=== PATIENT | female | born 1990 | race Caucasian/White ===

== ENCOUNTER 2024-08-08 19:53 | Emergency (ER) | payer BC, SELFPAY ==
[2024-08-08 19:54] VITALS: BP 155/79; PULSE 71; RESP 22; TEMP 36.6; O2SAT 98; BMI 23.3
--- NOTE | 2024-08-08 19:55 | ED_ITS ---
<Statement entered by Dianne Vu MD - 08/08/24 23:00> I was consulted by the BRITTANI, and we discussed the complexity of the problems being addressed. I approved the treatment and management plan for this patient's care in the emergency department, thus performing a substantive portion of the medical decision making. Dianne Vu MD, LD, FACEP Discharge Plan Disposition Patient Disposition: Home, Self-Care Condition: Good Chief Complaint: Abdominal Pain Referrals Follow up/Referrals: Provider,MD Lennox [Primary Care Provider] - See instructions Noé Morgan MD [Staff Physician] - See instructions (Right upper quadrant abdominal pain) Activity Restrictions/Add. Instructions Additional Instructions/Restrictions: As we discussed for any new or worsening symptoms including fever pain inability to tolerate oral intake return to the emergency department. Please call in the morning to make your appointment with general surgery for further evaluation of your right upper quadrant abdominal pain. Clinical Impressions Clinical Impression: Right upper quadrant abdominal pain Instructions Patient Instructions: DI for Acute Abdominal Pain Print Language Print Language: Upper Sorbian Discharge ED Provider: Dianne Vu General Adult HPI <MIGUEL Graham - Last Filed: 08/08/24 22:17> General Chief complaint: Abdominal Pain Stated complaint: Abdominal Pain with nausea Time Seen by Provider: 08/08/24 19:55 History of Present Illness HPI narrative: Patient presents for evaluation of acute onset of right sided abdominal pain. relates a history of having a pulled pork sandwich and 30 minutes later patient began having excruciating right-sided abdominal pain. She states that it has been crescendo-decrescendo but has not been absent. She reports nausea but no vomiting or diarrhea hematuria. She has had an appendectomy prior and has a history of previous kidney stones. She denies fever chills chest pain shortness of breath hemoptysis hematochezia melena Related Data Allergies Allergy/AdvReac Type Severity Reaction Status Date / Time Penicillins Allergy Rash Verified 08/08/24 20:05 [facility] <MIGUEL Graham - Last Filed: 08/08/24 22:17> [facility] Disclaimer: The information contained in this section may have been updated after the patient was seen, as this information can be updated by other users. Social History Smoking Status: Never smoker alcohol intake: never current occupational status: employed Travel in the last 8 weeks: None <MIGUEL Graham - Last Filed: 08/08/24 22:17> ROS Obtained: Yes Systems reviewed as appropriate & no additional complaints except as documented Physical Exam <MIGUEL Graham - Last Filed: 08/08/24 22:17> General General appearance: alert and in no apparent distress Respiratory Respiratory exam: Present normal lung sounds bilaterally Cardiovascular Cardiovascular exam: Present regular rate Neurological Exam Neurological exam: Present alert and oriented X3 Medical Decision Making <MIGUEL Graham - Last Filed: 08/08/24 22:17> Medical Records Medical records reviewed: Yes I reviewed the patient's medical records. Screening: Per USPSTF and CDC recommendations, given the prevalence of disease in our region, it is our hospital?s policy to screen for HIV and viral Hepatitis for all patients aged 18 and over and those with ongoing risk factors. Senthil Inquiry Pt receiving controlled substance: No Vital Signs: 08/08/24 19:54 Temperature 98 F Temperature Source Oral Pulse Rate [Right Brachial] 71 Respiratory Rate 22 Blood Pressure [Right Arm] 155/79 H Blood Pressure Mean [Right Arm] 104 02 Sat by Pulse Oximetry 98 Oxygen Delivery Method Room Air Lab Data Lab results reviewed: Yes I reviewed the patient's lab results. Lab Results 08/08/24 20:13: WBC 5.7, RBC 4.32, Hgb 12.7, Hct 36.7 L, MCV 85.0, MCH 29.4, MCHC 34.6, RDW 13.5, Plt Count 235, MPV 8.7, Neut % (Auto) 63.5, Lymph % (Auto) 27.7, Loving % (Auto) 4.6, Eos % (Auto) 2.8, Baso % (Auto) 1.3, Neut # (Auto) 3.6, Lymph # (Auto) 1.6, Loving # (Auto) 0.3, Eos # (Auto) 0.2, Baso # (Auto) 0.1, Sodium 142, Potassium 3.6, Chloride 108 H, Carbon Dioxide 25, Anion Gap 12.6, BUN 10, Creatinine 0.70, Estimated Creat Clear 119, Estimated GFR 96, Est GFR ( Amer) 117, Glucose 138 H, Calcium 9.6, Total Bilirubin 0.4, AST 27, ALT 26, Alkaline Phosphatase 57, Total Protein 7.4, Albumin 4.6, Globulin 2.8, Albumin/Globulin Ratio 1.6, Serum HCG, Qual Negative 08/08/24 20:55: Urine Color Yellow, Urine Appearance Clear, Urine pH 6.5, Ur Specific Gray 1.025, Urine Protein Negative, Urine Glucose (UA) Negative, Urine Ketones Negative, Urine Blood Negative, Urine Nitrate Negative, Urine Bilirubin Negative, Urine Urobilinogen 0.2, Ur Leukocyte Esterase Negative, Urine WBC 3-5, Ur Squamous Epith Cells 5-10, Urine Bacteria 1+, Urine Mucus 1+ 08/08/24 20:13 08/08/24 20:13 Orders (Tests/Meds): ED MEDICATIONS Generic Name Dose Route Start Last Admin Trade Name Freq PRN Reason Stop Dose Admin Sodium Chloride 10 ml 08/08/24 21:07 08/08/24 21:08 Sodium Chloride 0.9% 10ml Syr (Rad Only) IV 09/07/24 21:06 10 ml NEEDED PRN Administration Maintain IV Site Discontinued Medications Generic Name Dose Route Start Last Admin Trade Name Freq PRN Reason Stop Dose Admin Acetaminophen 1,000 mg 08/08/24 20:00 08/08/24 20:19 Acetaminophen 1,000mg/100ml Vial IV 08/08/24 20:01 1,000 mg ONCE ONE Administration Lactated Ringer's 1,000 mls @ 999 mls/hr 08/08/24 20:18 08/08/24 20:19 Lactated Ringer's 1000 Ml Bag IV 08/08/24 21:18 999 mls/hr .Q1H1M ONE Administration Iopamidol 75 ml 08/08/24 21:07 08/08/24 21:07 Iopamidol-370 (76%);100ml Bottle IV 08/08/24 21:08 75 ml ONCE ONE Administration Ketorolac Tromethamine 15 mg 08/08/24 20:00 08/08/24 20:19 Ketorolac 30mg/Ml Vial IV 08/08/24 20:01 15 mg ONCE ONE Administration Morphine Sulfate 2 mg 08/08/24 20:00 08/08/24 20:19 Morphine 2mg/Ml Syringe IV 08/08/24 20:01 2 mg ONCE ONE Administration Ondansetron HCl 4 mg 08/08/24 20:17 08/08/24 20:20 Ondansetron 4mg/2ml Vial IV 08/08/24 20:18 4 mg ONCE ONE Administration ORDERS Category Date Time Status CT abdomen pelvis w con Stat Cat Scan 08/08/24 20:01 Completed POCUS Point of Care (ER Only) Stat Exams 08/08/24 19:59 Completed CBC w/Auto Diff [Complete Blood Count Auto Diff] Stat Lab 08/08/24 20:13 Completed CMP [Comprehensive Metabolic Panel] Stat Lab 08/08/24 20:13 Completed HCG Qualitative, Serum Stat Lab 08/08/24 20:13 Completed UA [Urinalysis and Microscopic] Stat Lab 08/08/24 20:55 Completed Medical Decision Narrative: In summary patient is a 33-year-old female who presents to the emergency department for evaluation of right-sided abdominal pain. Patient is hemodynamically stable upon arrival, afebrile. Zickel exam is remarkable for right sided abdominal tenderness to palpation but no rebound no guarding no rigidity. Bowel sounds are quiescent. Patient does have right-sided CVA tenderness to percussion negative on the left. Differential diagnosis includes biliary colic versus cholecystitis versus kidney stone. Initial workup will be conducted with hematologic labs urinalysis CT scan abdomen pelvis POCUS. Initial interventions include crystalloid bolus Toradol Tylenol Zofran morphine. Initial workup reviewed by me and her hematologic labs are nonactionable urinalysis shows white cells and 1+ bacteria but patient also had 5-10 epithelial cells. She has no urinary tract symptoms. My informal interpretation of her CT scan abdomen pelvis shows a dilated gallbladder with gallstones but no evidence of pericholecystic fluid or stranding or obstruction, no evidence of hydronephrosis or kidney stone, she does have a large stool burden in the cecum but no evidence of perforation or stranding prior to radiology read. Upon repeat evaluation patient had complete resolution of her symptoms after initial intervention. Given this we have essentially ruled out any serious or life-threatening problem although not definitively identify the cause suspect most likely biliary colic given that she presented after a meal and her gallbladder was largely dilated and not contracted as 1 would expect. Given this I will refer the patient to general surgery for further evaluation of biliary dyskinesia and biliary colic with strict return precautions. <Dainne Vu MD - Last Filed: 08/08/24 20:13> Vital Signs: 08/08/24 19:54 Temperature 98 F Temperature Source Oral Pulse Rate [Right Brachial] 71 Respiratory Rate 22 Blood Pressure [Right Arm] 155/79 H Blood Pressure Mean [Right Arm] 104 02 Sat by Pulse Oximetry 98 Oxygen Delivery Method Room Air Lab Data Lab Results 08/08/24 20:13: WBC 5.7, RBC 4.32, Hgb 12.7, Hct 36.7 L, MCV 85.0, MCH 29.4, MCHC 34.6, RDW 13.5, Plt Count 235, MPV 8.7, Neut % (Auto) 63.5, Lymph % (Auto) 27.7, Loving % (Auto) 4.6, Eos % (Auto) 2.8, Baso % (Auto) 1.3, Neut # (Auto) 3.6, Lymph # (Auto) 1.6, Loving # (Auto) 0.3, Eos # (Auto) 0.2, Baso # (Auto) 0.1, Sodium 142, Potassium 3.6, Chloride 108 H, Carbon Dioxide 25, Anion Gap 12.6, BUN 10, Creatinine 0.70, Estimated Creat Clear 119, Estimated GFR 96, Est GFR ( Amer) 117, Glucose 138 H, Calcium 9.6, Total Bilirubin 0.4, AST 27, ALT 26, Alkaline Phosphatase 57, Total Protein 7.4, Albumin 4.6, Globulin 2.8, Albumin/Globulin Ratio 1.6, Serum HCG, Qual Negative 08/08/24 20:55: Urine Color Yellow, Urine Appearance Clear, Urine pH 6.5, Ur Specific Gray 1.025, Urine Protein Negative, Urine Glucose (UA) Negative, Urine Ketones Negative, Urine Blood Negative, Urine Nitrate Negative, Urine Bilirubin Negative, Urine Urobilinogen 0.2, Ur Leukocyte Esterase Negative, Urine WBC 3-5, Ur Squamous Epith Cells 5-10, Urine Bacteria 1+, Urine Mucus 1+ Orders (Tests/Meds): ED MEDICATIONS Generic Name Dose Route Start Last Admin Trade Name Freq PRN Reason Stop Dose Admin Sodium Chloride 10 ml 08/08/24 21:07 08/08/24 21:08 Sodium Chloride 0.9% 10ml Syr (Rad Only) IV 09/07/24 21:06 10 ml NEEDED PRN Administration Maintain IV Site Discontinued Medications Generic Name Dose Route Start Last Admin Trade Name Freq PRN Reason Stop Dose Admin Acetaminophen 1,000 mg 08/08/24 20:00 08/08/24 20:19 Acetaminophen 1,000mg/100ml Vial IV 08/08/24 20:01 1,000 mg ONCE ONE Administration Lactated Ringer's 1,000 mls @ 999 mls/hr 08/08/24 20:18 08/08/24 20:19 Lactated Ringer's 1000 Ml Bag IV 08/08/24 21:18 999 mls/hr .Q1H1M ONE Administration Iopamidol 75 ml 08/08/24 21:07 08/08/24 21:07 Iopamidol-370 (76%);100ml Bottle IV 08/08/24 21:08 75 ml ONCE ONE Administration Ketorolac Tromethamine 15 mg 08/08/24 20:00 08/08/24 20:19 Ketorolac 30mg/Ml Vial IV 08/08/24 20:01 15 mg ONCE ONE Administration Morphine Sulfate 2 mg 08/08/24 20:00 08/08/24 20:19 Morphine 2mg/Ml Syringe IV 08/08/24 20:01 2 mg ONCE ONE Administration Ondansetron HCl 4 mg 08/08/24 20:17 08/08/24 20:20 Ondansetron 4mg/2ml Vial IV 08/08/24 20:18 4 mg ONCE ONE Administration ORDERS Category Date Time Status CT abdomen pelvis w con Stat Cat Scan 08/08/24 20:01 Completed POCUS Point of Care (ER Only) Stat Exams 08/08/24 19:59 Completed CBC w/Auto Diff [Complete Blood Count Auto Diff] Stat Lab 08/08/24 20:13 Completed CMP [Comprehensive Metabolic Panel] Stat Lab 08/08/24 20:13 Completed HCG Qualitative, Serum Stat Lab 08/08/24 20:13 Completed UA [Urinalysis and Microscopic] Stat Lab 08/08/24 20:55 Completed Procedures <Dianne Vu MD - Last Filed: 08/08/24 20:13> Miscellaneous Procedure Procedure Performed: Limited RUQ ultrasound Indication: Abdominal pain Identified structures: -Gallbladder -Gallbladder wall -Common bile duct -Liver Findings: There are multiple stones that are present in the gallbladder but no evidence of acute inflammation there is a negative sonographic Neil's anterior gallbladder wall is less than 0.3 cm common bile duct is visualized and was 0.3 cm as well no pericholecystic fluid Impression: Cholelithiasis without radiographic evidence of cholecystitis or choledocholithiasis Images were saved to permanent archive The study was technically adequate CPT 19204-31 This study was performed by [facility], and I personally interpreted all images/videos. Based on my clinical judgement, these images were adequate and did not necessitate further imaging. Limited renal ultrasound Indication: A focused ultrasound of the kidneys was performed to evaluate for hydronephrosis and nephrolithiasis. The ultrasound was performed with the following indications, as noted in the H&P: Abdominal pain Identified structures: [-R kidney - L kidney - Both kidneys] Findings: There is moderate right-sided hydronephrosis in comparison with left Impression: Moderate right-sided hydronephrosis concerning for possible obstructing kidney stone Images were saved to permanent archive The study was technically adequate CPT: 55941-99 This study was performed by [facility], and I personally interpreted all images/videos. Based on my clinical judgement, these images were adequate and did not necessitate further imaging. Critical Care <MIGUEL Graham - Last Filed: 08/08/24 22:17> Critical Care Time Critical Care Time: No
--- NOTE | 2024-08-08 20:01 | CT_ITS ---
PROCEDURE INFORMATION: Exam: CT Abdomen And Pelvis With Contrast Exam date and time: 08/08/2024 9:06 PM Age: 33 years old Clinical indication: Abdominal pain; Additional info: Upper quadrant abdominal pain TECHNIQUE: Imaging protocol: Computed tomography of the abdomen and pelvis with contrast. Radiation optimization: All CT scans at this facility use at least one of these dose optimization techniques: automated exposure control; mA and/or kV adjustment per patient size (includes targeted exams where dose is matched to clinical indication); or iterative reconstruction. Contrast material: ISOVUE; Contrast volume: 75 ml; Contrast route: IV; COMPARISON: No relevant prior studies available. FINDINGS: Liver: Normal. No mass. Gallbladder and biliary ducts: Dilated gallbladder with gallstones and gallbladder wall thickening. Pancreas: Normal. No ductal dilation. Spleen: Normal. No splenomegaly. Adrenal glands: Normal. No mass. Kidneys and ureters: Low attenuation renal lesions measuring up to 1.5 cm in diameter are incompletely characterized, but are likely cysts. No followup imaging is warranted. Duplex right kidney. Stomach and bowel: Bowel wall thickening of portions of small bowel. Appendix: Appendix is absent. Intraperitoneal space: Trace free fluid in the pelvis, which could be physiologic. Vasculature: Unremarkable. No abdominal aortic aneurysm. Lymph nodes: Unremarkable. No enlarged lymph nodes. Urinary bladder: Nonspecific urinary bladder wall thickening. Reproductive: Intrauterine device is in the expected location. Bones/joints: Unremarkable. No acute fracture. Soft tissues: Tiny fat containing umbilical hernia. IMPRESSION: 1. Dilated gallbladder with gallstones and gallbladder wall thickening. Please correlate for evidence of acute cholecystitis. 2. Bowel wall thickening of portions of small bowel. Enteritis is possible. 3. Nonspecific urinary bladder wall thickening. Please exclude infection. COMMENTS: Consistent with the [employer]'s Incidental Findings Committee white paper (J Am Timothy Radiol 2018): Any incidental renal lesion less than 1 cm or classified as too small to characterize, or any incidental cystic renal lesion characterized as simple-appearing, is likely benign. No follow-up imaging is recommended for these lesions per consensus recommendations based on imaging criteria.
[2024-08-08] MEDS: LACTATED RINGERS 1000ML 1,000 ML 999 ML IV (20:19)
[2024-08-08] MEDS: ACETAMINOPHEN 1,000MG/100ML VIAL 1000 MG IV (20:19)
[2024-08-08] MEDS: KETOROLAC 30MG/ML VIAL 15 MG IV (20:19)
[2024-08-08] MEDS: MORPHINE 2MG/ML SYRINGE 2 MG IV (20:19)
[2024-08-08] MEDS: ONDANSETRON 4MG/2ML VIAL 4 MG IV (20:20)
[2024-08-08 20:27] LABS: Albumin Level 4.6 g/dl (3.5-5.0); Chloride 108 mmol/L (98-107); Potassium 3.6 mmoL/L (3.5-5.1); Sodium 142 mmol/L (136-145)
[2024-08-08 20:28] LABS: Basophils # 0.1 K/mm3 (0-0.2); Basophils % 1.3 % (0.1-2.0); Eosinophils # 0.2 K/mm3 (0.0-0.4); Eosinophils % 2.8 % (0.1-12.0); Hematocrit 36.7 % (37.0-47.0); Hemoglobin 12.7 g/dL (12.2-16.2); Lymphocytes # 1.6 K/mm3 (0.7-4.5); Lymphocytes % 27.7 % (10-50); Mean Corpuscular HGB Conc 34.6 g/dL (31.8-35.4); Mean Corpuscular Hemoglobin 29.4 pg (27.0-31.2); Mean Platelet Volume 8.7 fl (7.4-10.4); Monocytes # 0.3 K/mm3 (0.1-1.0); Monocytes % 4.6 % (1.7-9.3); Neutrophils # 3.6 K/mm3 (1.8-7.8); Neutrophils % 63.5 % (37.0-80.0); Platelet Count 235 K/mm3 (142-424); Red Blood Count 4.32 M/mm3 (4.20-5.40); Red Cell Distribution Width 13.5 % (11.5-17.5); White Blood Count 5.7 K/mm3 (4.8-10.8)
[2024-08-08 20:30] LABS: Alanine Aminotransferase 26 U/L (12-78); Albumin/Globulin Ratio 1.6 (1.1-1.8); Alkaline Phosphatase 57 U/L (38-126); Anion Gap 12.6 mEq/L (5-15); Aspartate Amino Transferase 27 U/L (14-36); Bilirubin,Total 0.4 mg/dl (0.2-1.3); Blood Urea Nitrogen 10 mg/dl (7-17); Calcium 9.6 mg/dl (8.4-10.2); Carbon Dioxide 25 mmol/L (22.0-30.0); Creatinine Clearance Estimated 119 mL/min (50-200); Estimated Glomerular Filt Rate 96 ml/min (>60); GFR (African American) 117 ML/MIN (>60); Globulin 2.8 g/dL (1.3-3.2); Glucose 138 mg/dl (74-100); Total Protein,Serum 7.4 g/dl (6.3-8.2)
[2024-08-08 20:57] LABS: HCG Qualitative, Serum Negative (Negative)
[2024-08-08 21:01] LABS: Microscopic, Urine URINE MICROSCOPIC (MICROSCOPIC)
[2024-08-08 21:03] LABS: Appearance,Urine CLEAR (Clear); Bilirubin,Urine Negative (Negative); Blood, Urine Negative (Negative); Color,Urine YELLOW (Yellow); Glucose,Urine (UA) Negative (Negative); Ketones,Urine Negative (Negative); Leukocyte Esterase,Urine Negative (Negative); Nitrate,Urine Negative (Negative); PH,Urine 6.5 (5.0-8.5); Protein,Urine Negative (Negative); Specific Gravity, Urine 1.025 (1.005-1.030); Urobilinogen,Urine 0.2 EU/dl (0.2)
[2024-08-08] MEDS: IOPAMIDOL-370 (76%);100ML BOTTLE 75 ML IV (21:07)
[2024-08-08] MEDS: SODIUM CHLORIDE 0.9% 10ML SYR (RAD ONLY) 10 ML IV (21:08)
[2024-08-08 21:21] LABS: Bacteria,Urine 1+ /lpf; Mucus,Urine 1+ /lpf
[2024-08-08 22:46] VITALS: BP 144/89; PULSE 74; RESP 16; TEMP 36.9; O2SAT 100
== END 2024-08-08 22:53 | disposition home or self-care (01) ==
PROVIDERS: Physician Assistant; Emergency Provider Student in an Organized Health Care Education/Training Program
DX: R10.11 Right upper quadrant pain (principal); R11.0 Nausea
CPT/HCPCS: 74177; 80053; 81001; 84703; 85025; 96361; 96374; 96375; 99285; J0131; J1885; J2270; J2405; J7120; Q9967